=== PATIENT | male | born 1960 | race American Indian/Alaskan Native ===

== ENCOUNTER 2017-03-07 20:58 | Emergency (ER) | payer OTHER ==
[2017-03-07 21:06] VITALS: BP 139/68; PULSE 95; RESP 16; TEMP 99.1; O2SAT 96
--- NOTE | 2017-03-07 21:27 | ED PDOC ---
HPI: Wound Care - HPI Time Seen by Provider: 03/07/17 21:20 Chief Complaint (Nursing): Wound Check History Per: Patient (S/p spinal surgery, LEANA drain accidentally fell out today. With minimal serosanguinous drainage) Past Medical History Vital Signs: Last Vital Signs Temp 99.1 F 03/07/17 21:03 Pulse 95 H 03/07/17 21:03 Resp 16 03/07/17 21:03 BP 139/68 03/07/17 21:03 Pulse Ox 96 03/07/17 21:03 - Medical History PMH: Arthritis, Diabetes, Gastrointestinal Ulcer, Hepatitis (C), HTN, Kidney Stones, Chronic Pain (Back) Denies: HIV, Chronic Kidney Disease - Family History Family History: States: Diabetes, Hypertension - Home Medications Home Medications: Ambulatory Orders Medication Instructions Recorded Glipizide [Glipizide ER] 2.5 mg PO DAILY #0 tab.er.24 03/28/16 Losartan Potassium 25 mg PO DAILY #0 tablet 03/28/16 MetFORMIN [glucoPHAGE] 1,000 mg PO BID #0 tab 03/28/16 Oxycodone HCl/Acetaminophen 1 tab PO Q4H #0 tablet 03/28/16 [Oxycodone-Acetaminophen 10-325] SITagliptin [Januvia] 100 mg PO DAILY #0 tab 03/28/16 amLODIPine [Norvasc] 5 mg PO BID #0 tab 03/28/16 Ferrous Sulfate [Feosol] 325 mg PO BID #60 tab 03/29/16 Sennosides A and B [Senokot Tab] 8.6 mg PO HS #30 tab 03/29/16 - Allergies Allergies/Adverse Reactions: Allergies Allergy/AdvReac Type Severity Reaction Status Date / Time No Known Allergies Allergy Verified 03/07/15 17:39 Review of Systems Constitutional: Negative for: Fever Physical Exam - Physical Exam Appears: Positive for: Non-toxic, No Acute Distress Back: Positive for: Other (Minimal serosanguinous drainage lower pole. No fluctuance erythema or tenderness.) - ECG O2 Sat by Pulse Oximetry: 96 Disposition - Clinical Impression Clinical Impression: Encounter for postoperative wound check - Patient ED Disposition Is Patient to be Admitted: No - Disposition Disposition: Routine/Home Disposition Time: 21:27 Condition: FAIR Instructions: Humphrey-Santos Drain Care (ED) Forms: [employer] (Hungarian)
== END 2017-03-07 21:43 | disposition home or self-care (01) ==
LOC: H.ER 20:58
DX: Z48.00 Encounter for change or removal of nonsurgical wound dressing (principal)